=== PATIENT | male | born 1960 | race Caucasian/White ===

== ENCOUNTER 2022-04-25 12:00 | Emergency (ER) | payer BC ==
[~2022-04-25] VITALS: Ht 195.6 cm; Wt 154.2 kg
[2022-04-25 12:00] VITALS: BP_SYST 206
--- NOTE | 2022-04-25 12:03 | NUR ---
Patient to ER bed 05 to gown for evaluation. Side rails up.
--- NOTE | 2022-04-25 12:36 | NUR ---
Note santiagokevin in ED - 04/25/22 at 1237 by [email or web address] Placed in room 5 . Placed on monitoring tech, blood pressure machine and pulse oximeter. To gown for exam. Side rails up. Report given to SARA STEVENS AND SHAD BAKER.
[2022-04-25] MEDS ORDERED: NACL 0.9% 1,000 ML IV ONE (12:45)
[2022-04-25] MEDS ORDERED: ONDANSETRON HCL 4 MG/2 ML VIAL IVP ONE (12:45)
[2022-04-25 12:53] LABS: BASOPHILS % (AUTO) 0.6 % (0.0-2.0); EOSINOPHILS # (AUTO) 0.1 K/uL (0.0-0.4); EOSINOPHILS % (AUTO) 1.6 % (0.0-4.0); HEMATOCRIT 43.4 % (36-54); HEMOGLOBIN 14.6 g/dL (14.0-18.0); LYMPHOCYTES % (AUTO) 13.9 % (20.5-51.5); MEAN CORPUSCULAR HEMOGLOBIN 29 pg (27-31); MEAN CORPUSCULAR HGB CONC 34 % (32-36); MEAN CORPUSCULAR VOLUME 87 fL (79.0-98.0); MONOCYTES # (AUTO) 0.6 K/uL (0.0-1.0); MONOCYTES % (AUTO) 9.3 % (1.7-9.3); NEUTROPHILS # (AUTO) 5.2 K/uL (1.8-7.7); NEUTROPHILS % (AUTO) 74.6 % (40.0-70.0); PLATELET COUNT (AUTO) 278 K/uL (130-430); RED BLOOD CELL COUNT(AUTO) 4.98 MIL/uL (4.2-6.2)
--- NOTE | 2022-04-25 12:54 | NUR ---
Pt presents to the ER BIB self from home. Pt CC Left rib pain R/T weakness from covid recovery. Pt states Covid positive last Tuesday one week ago was feeling weak and fell trauma to left rib. Second fall occured due to weakness and injury occurred to left knee. slight swelling present to left knee. Skin intact, Pt denies covid like symptoms and states tested negative 72 hours ago. Pt further states noncompliance with blood pressure medication for several months. BP 206/125 second check: 151/100. Even unlabored breathing, bowel sounds present, Pt is in bed with HOB upright and bed down.
[2022-04-25 13:06] LABS: CALCIUM 10.4 mg/dL (8.4-11.0); CREATININE 0.82 mg/dL (0.55-1.30); POTASSIUM 4.3 mmol/L (3.5-5.1)
[2022-04-25 13:11] LABS: ALBUMIN 3.8 g/dL (3.4-4.8); TOTAL BILIRUBIN 0.4 mg/dL (0.0-1.0)
[2022-04-25 13:17] LABS: BILIRUBIN,URINE NEGATIVE (NEGATIVE); BLOOD, URINE NEGATIVE (NEGATIVE); CLARITY/URINE CLEAR (CLEAR); COLOR,URINE YELLOW (YELLOW); GLUCOSE,URINE NEGATIVE (NEGATIVE); KETONES,URINE NEGATIVE (NEGATIVE); LEUKOCYTE ESTERASE ,URINE NEGATIVE (NEGATIVE); NITRITE, URINE NEGATIVE (NEGATIVE); PROTEIN URINE NEGATIVE (NEGATIVE); UROBILINOGEN,URINE 0.2 (0.2-1.0)
--- NOTE | 2022-04-25 13:22 | NUR ---
Pt states Pain level 06/05 notified BP 151/85.
[2022-04-25] MEDS ORDERED: HYDROcodone/ACETAMIN 10-325 MG TAB PO ONE (13:45)
[2022-04-25 14:00] VITALS: BP_SYST 161
--- NOTE | 2022-04-25 14:15 | NUR ---
PT with information technology teacher to radiology dept.
[2022-04-25] MEDS ORDERED: ACET-2634 PO (14:42)
[2022-04-25] MEDS ORDERED: LIDO1ADH77 TD (14:42)
[2022-04-25] MEDS ORDERED: IBUP-1969 PO (14:42)
--- NOTE | 2022-04-25 15:01 | NUR ---
Patient given written and verbal discharge instructions and verbalizes understanding. ER MD discussed with patient the results and treatment provided. Patient in stable condition. ID arm band removed. Rx of TYLENOL, IBUPROFEN, LIDOCAINE PATCH given. Patient educated on pain management and to follow up with PMD. Pain Scale 1/10. Opportunity for questions provided and answered. Medication side effect fact sheet provided.
--- NOTE | 2022-04-25 15:01 | NUR ---
WILL CALL WITH COVID RESULTS PER ROBERT NGUYEN [phone]
--- NOTE | 2022-04-25 16:36 | NUR ---
CALLED AND SPOKE WITH ROBERT, TEST RESULTS GIVEN
== END 2022-04-25 15:01 | disposition home or self-care (01) ==
LOC: SED 12:00
DX: U07.1 COVID-19 (principal); R07.89 Other chest pain; R06.02 Shortness of breath; I10 Essential (primary) hypertension; Z79.899 Other long term (current) drug therapy
CPT/HCPCS: 36415; 71046-TC; 80053; 81003; 83605; 83690; 83880; 84484; 85025; 87040; 93005; 99285